=== PATIENT | female | born 1970 | race American Indian/Alaskan Native ===

== ENCOUNTER 2021-03-23 10:00 | Emergency (ER) | payer OTHER ==
--- NOTE | 2021-03-23 20:29 | EDM.PDOC ---
ED HPI GENERAL MEDICAL PROBLEM - General Chief Complaint: General Stated Complaint: Feeling depress Time Seen by Provider: 03/23/21 10:00 Source of Information: Reports: Patient History Limitations: Reports: No Limitations - History of Present Illness INITIAL COMMENTS - FREE TEXT/NARRATIVE: Patient presented tov the Ed because of her anxiety and depression which is getting worse. she is supposed to take prozac 20 mg daily but she decided not to take it. She denies having suicidal or homicidal thoughts. She think that somebody is trying to poison her. 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 D&C Psychiatric History: Reports: Other (See Below) Other Psychiatric History: Patient stated she has mental health issues, prescribed with medications but refused to take them and threw meds away as she feels like she's being drug and not helping her. Social & Family History - Tobacco Use Years of Tobacco use: 30 Packs/Tins Daily: 1 - Caffeine Use Caffeine Use: Reports: Soda - Recreational Drug Use Recreational Drug Use: No ED ROS GENERAL - Review of Systems Review Of Systems: See Below Constitutional: Reports: No Symptoms HEENT: Reports: No Symptoms Respiratory: Reports: No Symptoms Cardiovascular: Reports: No Symptoms Endocrine: Reports: No Symptoms GI/Abdominal: Reports: No Symptoms : Reports: No Symptoms Musculoskeletal: Reports: No Symptoms Skin: Reports: No Symptoms Neurological: Reports: No Symptoms Psychiatric: Reports: No Symptoms Hematologic/Lymphatic: Reports: No Symptoms ED EXAM, GENERAL - Physical Exam Exam: See Below Exam Limited By: No Limitations General Appearance: Alert, No Apparent Distress Eye Exam: Bilateral Eye: PERRL Ears: Normal External Exam, Normal Canal, Normal TMs Nose: Normal Inspection, Normal Mucosa, No Blood Throat/Mouth: Normal Inspection, Normal Lips, Normal Teeth, Normal Gums, Normal Oropharynx, Normal Voice Head: Atraumatic, Normocephalic Neck: Normal Inspection, Supple, Non-Tender, Full Range of Motion Respiratory/Chest: No Respiratory Distress, Lungs Clear, Normal Breath Sounds, No Accessory Muscle Use, Chest Non-Tender Cardiovascular: Normal Peripheral Pulses, Regular Rate, Rhythm, No Edema, No Gallop, No JVD, No Murmur, No Rub GI/Abdominal: Normal Bowel Sounds, Soft, Non-Tender, No Organomegaly, No Distention, No Abnormal Bruit Back Exam: Normal Inspection, Full Range of Motion Extremities: Normal Inspection, Normal Range of Motion, Non-Tender, No Pedal Edema, Normal Capillary Refill Course - Vital Signs Text/Narrative:: Lab result was reviewed and discussed with patient I told her that she didn't satisfy the criteria for inpatient psych hospitalization because she is no suicidal or homicidal. i told her to start taking her Prozac again and to follow up with her psychiatrist this week but she didn't like what I told her and just left. Last Recorded V/S: Last Vital Signs Temp 36.6 C 03/23/21 10:00 Pulse 94 03/23/21 10:00 Resp 18 03/23/21 10:00 BP 142/84 H 03/23/21 10:00 Pulse Ox 96 03/23/21 10:00 - Orders/Labs/Meds Orders: Active Orders 24 hr Category Date Time Status THYROXINE (T4) FREE, DIRECT Stat Lab 03/23/21 10:45 Received Labs: Laboratory Tests 03/23/21 03/23/21 03/23/21 Range/Units 10:40 10:40 10:45 WBC 7.7 (3.0-10.3) x10-3/uL RBC 4.44 (3.60-5.20) x10(6)uL Hgb 14.8 (11.4-15.5) g/dL Hct 44.9 (34.2-48.2) % MCV 101.1 H (76.7-100.5) fL MCH 33.3 (23.9-33.9) pg MCHC 32.9 (31.9-34.8) g/dL RDW 13.3 (12.3-16.5) % Plt Count 240 (151-488) x10(3)uL MPV 9.3 (7.1-12.4) fL Neut % (Auto) 74.8 (30.8-76.2) % Lymph % (Auto) 16.4 L (18.4-52.1) % [place] % (Auto) 7.3 (4.4-15.7) % Eos % (Auto) 1.0 (0.6-8.1) % Baso % (Auto) 0.5 (0.2-1.5) % Neut # (Auto) 5.7 (1.5-6.3) x10-3/uL Lymph # (Auto) 1.3 (1.0-4.4) x10-3/uL [place] # (Auto) 0.6 (0.3-1.0) x10-3/uL Eos # (Auto) 0.1 (0.0-0.8) x10-3/uL Baso # (Auto) 0.0 (0.0-0.1) x10-3/uL Sodium (135-145) mmol/L Potassium (3.5-5.3) mmol/L Chloride (100-110) mmol/L Carbon Dioxide (21-32) mmol/L BUN (7-18) mg/dL Creatinine (0.55-1.02) mg/dL Est Cr Clr Drug Dosing Estimated GFR (MDRD) (>60) BUN/Creatinine Ratio (9-20) Glucose (80-116) mg/dL Calcium (8.6-10.2) mg/dL Total Bilirubin (0.1-1.3) mg/dL AST (5-25) IU/L ALT (12-36) U/L Alkaline Phosphatase (56-112) IU/L Total Protein (6.0-8.0) g/dL Albumin (3.5-5.2) g/dL Globulin g/dL Albumin/Globulin Ratio TSH, Ultra Sensitive (0.36-3.74) IU/mL Urine Color Yellow (YELLOW) Urine Appearance Clear (CLEAR) Urine pH 6.0 (5.0-6.5) Ur Specific [place] 1.005 L (1.010-1.025) Urine Protein Negative (NEGATIVE) mg/dL Urine Glucose (UA) Normal (NORMAL) mg/dL Urine Ketones Negative (NEGATIVE) mg/dL Urine Occult Blood Negative (NEGATIVE) Urine Nitrite Negative (NEGATIVE) Urine Bilirubin Negative (NEGATIVE) Urine Urobilinogen Normal (NEGATIVE) mg/dL Ur Leukocyte Esterase Negative (NEGATIVE) Urine WBC 0-5 (0-5) Ur Squamous Epith Cells Few H (NS,R,O) Urine Bacteria Few H (NS) Urine Opiates Screen Negative (NEGATIVE) Ur Buprenorphine Scrn Negative (NEGATIVE) Ur Oxycodone Screen Negative (NEGATIVE) Urine Methadone Screen Negative (NEGATIVE) Ur Propoxyphene Screen Negative (NEGATIVE) Ur Barbiturates Screen Negative (NEGATIVE) Ur Tricyclics Screen Negative (NEGATIVE) Ur Phencyclidine Scrn Negative (NEGATIVE) Ur Amphetamine Screen Negative (NEGATIVE) U Methamphetamines Scrn Negative (NEGATIVE) U Benzodiazepines Scrn Negative (NEGATIVE) U Cocaine Metab Screen Negative (NEGATIVE) U Marijuana (THC) Screen Positive H (NEGATIVE) Ethyl Alcohol (<0.03) % 03/23/21 03/23/21 Range/Units 10:45 10:45 WBC (3.0-10.3) x10-3/uL RBC (3.60-5.20) x10(6)uL Hgb (11.4-15.5) g/dL Hct (34.2-48.2) % MCV (76.7-100.5) fL MCH (23.9-33.9) pg MCHC (31.9-34.8) g/dL RDW (12.3-16.5) % Plt Count (151-488) x10(3)uL MPV (7.1-12.4) fL Neut % (Auto) (30.8-76.2) % Lymph % (Auto) (18.4-52.1) % [place] % (Auto) (4.4-15.7) % Eos % (Auto) (0.6-8.1) % Baso % (Auto) (0.2-1.5) % Neut # (Auto) (1.5-6.3) x10-3/uL Lymph # (Auto) (1.0-4.4) x10-3/uL [place] # (Auto) (0.3-1.0) x10-3/uL Eos # (Auto) (0.0-0.8) x10-3/uL Baso # (Auto) (0.0-0.1) x10-3/uL Sodium 141 (135-145) mmol/L Potassium 4.1 (3.5-5.3) mmol/L Chloride 103 (100-110) mmol/L Carbon Dioxide 28 (21-32) mmol/L BUN 6 L (7-18) mg/dL Creatinine 0.9 (0.55-1.02) mg/dL Est Cr Clr Drug Dosing TNP Estimated GFR (MDRD) > 60 (>60) BUN/Creatinine Ratio 6.7 L (9-20) Glucose 90 (80-116) mg/dL Calcium 8.5 L (8.6-10.2) mg/dL Total Bilirubin 0.6 (0.1-1.3) mg/dL AST 45 H (5-25) IU/L ALT 26 (12-36) U/L Alkaline Phosphatase 68 (56-112) IU/L Total Protein 7.0 (6.0-8.0) g/dL Albumin 3.5 (3.5-5.2) g/dL Globulin 3.5 g/dL Albumin/Globulin Ratio 1.0 TSH, Ultra Sensitive 2.51 (0.36-3.74) IU/mL Urine Color (YELLOW) Urine Appearance (CLEAR) Urine pH (5.0-6.5) Ur Specific [place] (1.010-1.025) Urine Protein (NEGATIVE) mg/dL Urine Glucose (UA) (NORMAL) mg/dL Urine Ketones (NEGATIVE) mg/dL Urine Occult Blood (NEGATIVE) Urine Nitrite (NEGATIVE) Urine Bilirubin (NEGATIVE) Urine Urobilinogen (NEGATIVE) mg/dL Ur Leukocyte Esterase (NEGATIVE) Urine WBC (0-5) Ur Squamous Epith Cells (NS,R,O) Urine Bacteria (NS) Urine Opiates Screen (NEGATIVE) Ur Buprenorphine Scrn (NEGATIVE) Ur Oxycodone Screen (NEGATIVE) Urine Methadone Screen (NEGATIVE) Ur Propoxyphene Screen (NEGATIVE) Ur Barbiturates Screen (NEGATIVE) Ur Tricyclics Screen (NEGATIVE) Ur Phencyclidine Scrn (NEGATIVE) Ur Amphetamine Screen (NEGATIVE) U Methamphetamines Scrn (NEGATIVE) U Benzodiazepines Scrn (NEGATIVE) U Cocaine Metab Screen (NEGATIVE) U Marijuana (THC) Screen (NEGATIVE) Ethyl Alcohol < 0.03 (<0.03) % Departure - Departure Time of Disposition: 10:50 Disposition: Against Medical Advice 07 Condition: Good Clinical Impression: Depression, Anxiety - Discharge Information Instructions: Generalized Anxiety Disorder, Adult, Supporting Someone With Depression Referrals: PCP,Not In Area [Primary Care Provider] - Forms: ED Department Discharge Additional Instructions: Please read discharge instructions on Depression and anxiety Start taking your prozac 20 mg daily Follow up with your Psychiatrist this week. Sepsis Event Note (ED) - Focused Exam Vital Signs: Vital Signs Temp Pulse Resp BP Pulse Ox 03/23/21 10:00 36.6 C 94 18 142/84 H 96 - My Orders Last 24 Hours: My Active Orders 03/23/21 10:45 THYROXINE (T4) FREE, DIRECT Stat - Assessment/Plan Last 24 Hours: My Active Orders 03/23/21 10:45 THYROXINE (T4) FREE, DIRECT Stat
== END 2021-03-23 10:50 | disposition left against medical advice (07) ==
LOC: FB.ED 10:00
DX: F32.A Depression, unspecified (principal); F41.9 Anxiety disorder, unspecified; Z72.0 Tobacco use
CPT/HCPCS: 36415; 80053; 80307; 81001; 84439; 84443; 85025; 99284